=== PATIENT | male | born 1980 | race African-American/Black ===

== ENCOUNTER 2017-08-19 21:20 | Emergency (ER) | payer MEDICARE, OTHER ==
--- NOTE | 2017-08-19 22:15 | EKG REPORT ---
SEVERITY:- ABNORMAL ECG - SINUS RHYTHM FIRST DEGREE AV BLOCK PROBABLE LEFT ATRIAL ABNORMALITY : Confirmed by: Charles Leary 19-Aug-2017 22:15:30
--- NOTE | 2017-08-19 22:34 | RADIOLOGY REPORT (SQ) ---
EXAM DESCRIPTION: CHEST SINGLE VIEW COMPLETED DATE/TIME: 08/19/2017 10:26 pm REASON FOR STUDY: sob, cp COMPARISON: None. EXAM PARAMETERS: NUMBER OF VIEWS: One view. TECHNIQUE: Single frontal radiographic view of the chest acquired. RADIATION DOSE: NA LIMITATIONS: None. FINDINGS: LUNGS AND PLEURA: No opacities, masses or pneumothorax. No pleural effusion. MEDIASTINUM AND HILAR STRUCTURES: Bilateral hilar and right paratracheal adenopathy. HEART AND VASCULAR STRUCTURES: Heart normal in size. Normal vasculature. BONES: No acute findings. HARDWARE: None in the chest. OTHER: No other significant finding. IMPRESSION: No acute opacities. Bilateral hilar and right paratracheal adenopathy. Most likely sarcoid. Lymphoma in the differentia l. TECHNICAL DOCUMENTATION: JOB ID: [id number] [employer]- All Rights Reserved
[2017-08-19 22:47] LABS: ANION GAP 12 (5-19); BLOOD UREA NITROGEN 12 mg/dL (7-20); CALCIUM 9.8 mg/dL (8.4-10.2); CARBON DIOXIDE 25 mmol/L (22-30); CHLORIDE 100 mmol/L (98-107); GLUCOSE 124 mg/dL (75-110); POTASSIUM 4.4 mmol/L (3.6-5.0); SODIUM 137.1 mmol/L (137-145)
--- NOTE | 2017-08-19 22:49 | ER Document Report ---
ED General - General Chief Complaint: Chest Pain Stated Complaint: CHEST PAIN Time Seen by Provider: 08/19/17 22:02 Notes: Patient is a 37-year-old male who presents with chest pain. He describes it as a constant, stabbing, aching pain to the left side of his chest. Nothing improves or worsens the pain. States it has been present for over 12 hours. Denies a history of similar symptoms in the past. He denies any associated shortness of breath, nausea, vomiting, diaphoresis or pain radiating to the arms , jaw or back. He denies any prior history of DVT or pulmonary embolus. No cardiac history. He has not seen his primary doctor regarding today's concerns. Patient states that he believes is secondary to smoking too much. He denies any fever or constitutional symptoms. No pleuritic pain. TRAVEL OUTSIDE OF THE [place] IN LAST 30 DAYS: No - Related Data Allergies/Adverse Reactions: No Known Allergies Allergy (Verified 06/04/12 13:07) Past Medical History - General Information source: Patient - Social History Smoking Status: Current Every Day Smoker Frequency of alcohol use: Occasional Drug Abuse: None Lives with: Spouse/Significant other Family History: Reviewed & Not Pertinent Patient has suicidal ideation: No Patient has homicidal ideation: No - Past Medical History Cardiac Medical History: Reports: Hx Hypercholesterolemia, Hx Hypertension Neurological Medical History: Reports: Hx Migraine Renal/ Medical History: Denies: Hx Peritoneal Dialysis Psychiatric Medical History: Reports: Hx Bipolar Disorder - manic - Immunizations Hx Diphtheria, Pertussis, Tetanus Vaccination: Yes - not utd Review of Systems - Review of Systems Notes: Constitutional: Negative for fever. HENT: Negative for sore throat. Eyes: Negative for visual changes. Cardiovascular: Positive for chest pain. Respiratory: Negative for shortness of breath. Gastrointestinal: Negative for abdominal pain, vomiting or diarrhea. Genitourinary: Negative for dysuria. Musculoskeletal: Negative for back pain. Skin: Negative for rash. Neurological: Negative for headaches, weakness or numbness. 10 point ROS negative except as marked above and in HPI. Physical Exam - Vital signs Vitals: Resp Pulse Ox 20 95 08/19/17 21:47 08/19/17 21:47 Interpretation: Normal Notes: PHYSICAL EXAMINATION: GENERAL: Well-appearing, well-nourished and in no acute distress. HEAD: Atraumatic, normocephalic. EYES: Pupils equal round and reactive to light, extraocular movements intact, sclera anicteric, conjunctiva are normal. ENT: nares patent, oropharynx clear without exudates. Moist mucous membranes. NECK: Normal range of motion, supple without lymphadenopathy LUNGS: Breath sounds clear to auscultation bilaterally and equal. No wheezes rales or rhonchi. HEART: Regular rate and rhythm without murmurs ABDOMEN: Soft, nontender, normoactive bowel sounds. No guarding, no rebound. No masses appreciated. EXTREMITIES: Normal range of motion, no pitting or edema. No cyanosis. NEUROLOGICAL: No focal neurological deficits. Moves all extremities spontaneously and on command. PSYCH: Normal mood, normal affect. SKIN: Warm, Dry, normal turgor, no rashes or lesions noted. Course - Re-evaluation Re-evalutation: 08/19/17 22:49 Presentation of chest pain in an otherwise well appearing patient. Low clinical suspicion for ACS given clinical history, exam, EKG without ST elevations or depressions, and negative initial troponin. HEART score less than or equal to 3. PE also seems unlikely given clinical history, patient was initially mildly tachycardic but this did resolve and he states he was quite anxious about IV placement. At time of my assessment his heart rate is 98. CXR without evidence of pneumothorax or pneumonia. No widened mediastinum. Aortic dissection also seems unlikely given history, symmetric pulses, CXR, and vitals. Patient has had chest pain for the last 24 hours. No indication for serial troponins as I have a very low clinical suspicion for ACS and the patient has had an infarction his troponin should already be positive. At this time will discharge with return precautions and follow-up recommendations. Verbal discharge instructions given a the bedside and opportunity for questions given. Medication warnings reviewed. Patient is in agreement with this plan and has verbalized understanding of return precautions and the need for primary care follow-up in the next 24-72 hours. 08/20/17 02:20 At time of discharge patient was noted to have mild tachycardia at 102. Given his persistent tachycardia I encouraged patient to remain in the emergency department on telemetry, receive additional IV fluids and if his tachycardia had not resolved I would consider workup for possible pulmonary embolus. However patient states that he was tired, and all symptoms had completely resolved. He did not wish to stay for any further workup. He states he will contact his primary care doctor in the morning for follow-up. I have again reemphasized return precautions. - Vital Signs Vital signs: Temp Pulse Resp BP Pulse Ox 99.8 F 102 H 20 160/99 H 97 08/20/17 00:43 08/20/17 00:43 08/20/17 00:43 08/20/17 00:43 08/20/17 00:43 - Laboratory Result Diagrams: 08/19/17 22:10 Laboratory results interpreted by me: 08/19/17 22:10 Glucose 124 H - Diagnostic Test Radiology reviewed: Image reviewed, Reports reviewed Radiology results interpreted by me: 08/19/17 22:50 Chest x-ray: Possible sarcoidosis, No prior for comparison - EKG Interpretation by Me Additional EKG results interpreted by me: 08/19/17 22:58 Normal sinus rhythm. Rate 97. No ST elevations or depressions. QTC is 427. Discharge - Discharge Clinical Impression: Abnormal finding on chest xray Chest pain Qualifiers: Chest pain type: unspecified Qualified Code(s): R07.9 - Chest pain, unspecified Condition: Good Disposition: HOME, SELF-CARE Additional Instructions: You were seen today for chest pain. The exact cause of your pain is unclear. However, based on your cardiac enzyme testing, chest x-ray, and EKG it does not appear that it is from an immediately life-threatening cause at this time. You need to follow-up with your primary doctor for your pain episode as well as the findings on your chest xray we discussed today. Please return to emergency department immediately if you have worsening of your chest pain, shortness of breath, vomiting, become unable to exert yourself due to pain or difficulty breathing, you pass out, or have any pain that radiates into your arms, jaw, or back. Please also return if you have any additional symptoms that are concerning to you.
[2017-08-19] MEDS ORDERED: NORMAL SALINE 1000 ML 1,000 ML IV ONE (22:50)
[2017-08-20 00:58] VITALS: BP 160/99
== END 2017-08-20 01:00 | disposition home or self-care (01) ==
LOC: ER 21:20
DX: R07.9 Chest pain, unspecified (principal); R91.8 Other nonspecific abnormal finding of lung field; F17.200 Nicotine dependence, unspecified, uncomplicated; E78.00 Pure hypercholesterolemia, unspecified; I10 Essential (primary) hypertension
CPT/HCPCS: 93005; 99285; 96360; 36415; 80048; 84484; 71045; 93010; J7030